=== PATIENT | female | born 1975 | race African-American/Black ===

== ENCOUNTER 2017-01-27 08:31 | Emergency (ER) | payer MEDICAID ==
[~2017-01-27] VITALS: Ht 167.6 cm; Wt 52.0 kg
[~2017-01-27 08:31] MED LIST: ALBU2.5V13 NEB; ALBU6.7H INH; ATEN50TA PO; FERR-63 PO; FOLI-43 PO; HYDR-519 PO; HYDR-523 PO
[2017-01-27] MEDS ORDERED: ACETAMINOPHEN 325MG TABLET PO ONE (09:45)
[2017-01-27 09:48] LABS: HEMATOCRIT. 33.4 % (36.0-48.0); HEMOGLOBIN. 10.7 g/dL (12.0-16.0); MEAN CORPUSCULAR HEMOGLOBIN 20.8 pg (28.0-32.0); MEAN CORPUSCULAR HGB CONC 31.9 g/dL (31.0-37.0); MEAN CORPUSCULAR VOLUME 65.1 fL (81.0-99.0); MEAN PLATELET VOLUME 8.4 fl (7.4-10.4); RED BLOOD CELL COUNT 5.13 mill/uL (4.2-5.4); RED CELL DISTRIBUTION WIDTH 28.7 % (11.6-14.6); WHITE BLOOD COUNT 4.4 x1000/uL (4.5-11.0)
[2017-01-27 09:52] LABS: DIFFERENTIAL COMMENT 1
[2017-01-27 09:59] LABS: ANION GAP 11; CALCIUM 9.3 mg/dL (8.5-10.1); CARBON DIOXIDE 27 mEq/L (21-32); CHLORIDE 108 mEq/L (98-107); INDEX HEMOLYSI 1 (1-3); INDEX ICTERIC 1 (1-4); INDEX LIPEMIC 1 (1-3); UREA NITROGEN BLOOD 6 mg/dL (7-21)
[2017-01-27 10:01] LABS: eGFR > 60 mL/min (>60)
[2017-01-27 10:07] LABS: HCG SCREEN NEGATIVE
[2017-01-27 10:24] LABS: PLATELET ESTIMATE NORMAL
[2017-01-27 10:25] LABS: ANISOCYTOSIS 3+; HYPOCHROMASIA 1+
[2017-01-27 10:26] LABS: TEAR DROP CELLS FEW
[2017-01-27 10:27] LABS: PLATELET 234 x1000/uL (130-400)
[2017-01-27 11:55] VITALS: BP 149/77
== END 2017-01-27 11:56 | disposition home or self-care (01) ==
LOC: ER 08:55
DX: M54.5 Low back pain (principal); G89.29 Other chronic pain; D57.1 Sickle-cell disease without crisis; Z88.0 Allergy status to penicillin; Z88.2 Allergy status to sulfonamides; Z91.041 Radiographic dye allergy status; Z88.8 Allergy status to other drugs, medicaments and biological substances; Z79.899 Other long term (current) drug therapy; J45.909 Unspecified asthma, uncomplicated; E86.0 Dehydration
CPT/HCPCS: 36415; 72070; 80048; 84703; 85025; 99285

== ENCOUNTER 2017-02-20 07:27 | Emergency (ER) | payer MEDICAID ==
[~2017-02-20] VITALS: Ht 167.6 cm; Wt 53.0 kg
[2017-02-20 07:42] VITALS: BP 119/79
[2017-02-20 11:12] LABS: BASOPHILS % 0.5 % (0.0-2.0); EOSINOPHILS % 3.7 % (0.0-5.0); HEMATOCRIT. 34.7 % (36.0-48.0); HEMOGLOBIN. 11.1 g/dL (12.0-16.0); LYMPHOCYTES % 39.6 % (20.0-50.0); MEAN CORPUSCULAR HGB CONC 32.1 g/dL (31.0-37.0); MEAN CORPUSCULAR VOLUME 65.3 fL (81.0-99.0); MONOCYTES % 5.5 % (2.0-8.0); NEUTROPHILS % 50.7 % (40.0-76.0); RED BLOOD CELL COUNT 5.31 mill/uL (4.2-5.4); RED CELL DISTRIBUTION WIDTH 24.3 % (11.6-14.6); WHITE BLOOD COUNT 4.1 x1000/uL (4.5-11.0)
[2017-02-20 11:26] LABS: DIFFERENTIAL COMMENT 1
[2017-02-20 11:49] LABS: PLATELET 241 x1000/uL (130-400)
[2017-02-20 11:51] LABS: MEAN PLATELET VOLUME 8.9 fl (7.4-10.4)
== END 2017-02-20 18:12 | disposition home or self-care (01) ==
LOC: ER 08:25
DX: D17.22 Benign lipomatous neoplasm of skin and subcutaneous tissue of left arm (principal); L03.114 Cellulitis of left upper limb; M54.5 Low back pain; D64.9 Anemia, unspecified; J45.909 Unspecified asthma, uncomplicated; Z88.0 Allergy status to penicillin; Z88.2 Allergy status to sulfonamides; Z91.041 Radiographic dye allergy status; Z79.899 Other long term (current) drug therapy
CPT/HCPCS: 36415; 72100; 73030; 85025; 85044; 99285

== ENCOUNTER 2017-02-21 07:26 | Emergency (ER) | payer MEDICAID ==
[~2017-02-21] VITALS: Ht 167.6 cm; Wt 50.0 kg
[2017-02-21 07:29] VITALS: BP 134/82
== END 2017-02-21 07:57 | disposition home or self-care (01) ==
LOC: ER 07:36
DX: Z76.0 Encounter for issue of repeat prescription (principal); D57.1 Sickle-cell disease without crisis; C90.01 Multiple myeloma in remission; Z88.0 Allergy status to penicillin; Z88.2 Allergy status to sulfonamides; Z88.8 Allergy status to other drugs, medicaments and biological substances; Z91.041 Radiographic dye allergy status
CPT/HCPCS: 99283

== ENCOUNTER 2017-02-28 08:24 | Emergency (ER) | payer MEDICAID ==
[~2017-02-28] VITALS: Ht 167.6 cm; Wt 52.0 kg
[2017-02-28] MEDS ORDERED: IBUPROFEN 600MG TABLET PO ONE (09:15)
[2017-02-28 10:54] VITALS: BP 122/68
== END 2017-02-28 10:56 | disposition home or self-care (01) ==
LOC: ER 09:09
DX: M54.5 Low back pain (principal); Z88.0 Allergy status to penicillin; Z88.2 Allergy status to sulfonamides; Z88.8 Allergy status to other drugs, medicaments and biological substances; Z91.041 Radiographic dye allergy status
CPT/HCPCS: 72080; 81025; 99284; Z7610

== ENCOUNTER 2017-04-13 08:48 | Emergency (ER) | payer MEDICAID ==
[~2017-04-13] VITALS: Ht 167.6 cm; Wt 53.0 kg
[2017-04-13 09:18] VITALS: BP 120/78
== END 2017-04-13 13:08 | disposition left against medical advice (07) ==
LOC: ER 12:34
DX: R52 Pain, unspecified (principal); Z53.21 Procedure and treatment not carried out due to patient leaving prior to being seen by health care provider

== ENCOUNTER 2017-04-19 09:04 | Emergency (ER) | payer MEDICAID ==
[~2017-04-19] VITALS: Ht 170.2 cm; Wt 52.0 kg
[2017-04-19 09:38] VITALS: BP 111/67
[2017-04-19] MEDS ORDERED: METHOCARBAMOL 500MG TABLET PO ONE (10:00)
[2017-04-19] MEDS ORDERED: KETOROLAC 60MG/2ML VIAL IM ONE (10:00)
== END 2017-04-19 10:21 | disposition left against medical advice (07) ==
LOC: ER 09:47
DX: M79.1 Myalgia (principal); J45.909 Unspecified asthma, uncomplicated; C90.01 Multiple myeloma in remission; Z88.0 Allergy status to penicillin; Z88.2 Allergy status to sulfonamides; Z88.8 Allergy status to other drugs, medicaments and biological substances; Z91.041 Radiographic dye allergy status; Z90.710 Acquired absence of both cervix and uterus
CPT/HCPCS: 99281

== ENCOUNTER 2017-06-27 08:04 | Emergency (ER) | payer MEDICAID ==
[~2017-06-27] VITALS: Ht 167.6 cm; Wt 73.0 kg
[2017-06-27] MEDS ORDERED: ONDANSETRON HCL 4MG/2ML VIAL IV STA (10:06)
[2017-06-27] MEDS ORDERED: MORPHINE SULFATE 4 MG/ML CPJ (NOT FOR IM USE) IV STA (10:06)
[2017-06-27 10:37] LABS: GLUCOSE URINE NEGATIVE (NEGATIVE); KETONES URINE NEGATIVE (NEGATIVE); LEUKOCYTE ESTERASE URINE 1+ (NEGATIVE); NITRITE URINE POSITIVE (NEGATIVE); OCCULT BLOOD URINE 2+ (NEGATIVE); PH URINE 5.5 (4.5-8.0); PROTEIN URINE NEGATIVE (NEGATIVE); SPECIFIC GRAVITY URINE 1.014 (1.005-1.030)
[2017-06-27 10:41] LABS: INR 1.1; PROTHROMBIN TIME 11.7 sec (9.4-11.6)
[2017-06-27 10:43] LABS: CLARITY URINE CLOUDY (CLEAR); COLOR URINE YELLOW (YELLOW)
[2017-06-27 10:47] LABS: CARBON DIOXIDE 28 mEq/L (21-32); CHLORIDE 108 mEq/L (98-107)
[2017-06-27 10:48] LABS: HCG SCREEN NEGATIVE
[2017-06-27 10:57] LABS: BASOPHILS % 0.9 % (0.0-2.0); EOSINOPHILS % 6.8 % (0.0-5.0); HEMATOCRIT. 34.7 % (36.0-48.0); HEMOGLOBIN. 11.2 g/dL (12.0-16.0); LYMPHOCYTES % 42.8 % (20.0-50.0); MEAN CORPUSCULAR HEMOGLOBIN 21.5 pg (28.0-32.0); MEAN CORPUSCULAR VOLUME 66.8 fL (81.0-99.0); MEAN PLATELET VOLUME 9.6 fl (7.4-10.4); MONOCYTES % 7.7 % (2.0-8.0); NEUTROPHILS % 41.8 % (40.0-76.0); PLATELET 261 x1000/uL (130-400); RED BLOOD CELL COUNT 5.19 mill/uL (4.2-5.4); RED CELL DISTRIBUTION WIDTH 19.2 % (11.6-14.6)
[2017-06-27 11:31] VITALS: BP 138/64
[2017-06-27 11:54] LABS: PLATELET ESTIMATE NORMAL
== END 2017-06-27 11:58 | disposition home or self-care (01) ==
LOC: ER 08:16
DX: N39.0 Urinary tract infection, site not specified (principal); M89.8X3 Other specified disorders of bone, forearm; C90.00 Multiple myeloma not having achieved remission; R03.0 Elevated blood-pressure reading, without diagnosis of hypertension; J45.909 Unspecified asthma, uncomplicated; Z92.21 Personal history of antineoplastic chemotherapy; Z88.0 Allergy status to penicillin; Z88.2 Allergy status to sulfonamides; Z91.041 Radiographic dye allergy status; Z90.710 Acquired absence of both cervix and uterus
CPT/HCPCS: 36415; 71010; 71100; 73090; 80053; 81001; 84703; 85025; 85610; 99285; Z7610; J2270; J2405

== ENCOUNTER 2017-10-31 07:41 | Emergency (ER) | payer MEDICAID ==
[~2017-10-31] VITALS: Ht 167.6 cm; Wt 53.0 kg
[2017-10-31] MEDS ORDERED: MORPHINE SULFATE 4 MG/ML CPJ (NOT FOR IM USE) IV STA (14:27)
[2017-10-31] MEDS ORDERED: SODIUM CHLORIDE 0.9% 1,000 ML IV ONE (14:27)
[2017-10-31] MEDS ORDERED: ONDANSETRON HCL 4MG/2ML VIAL IV ONE (14:30)
[2017-10-31 14:38] LABS: INR 1.1; PROTHROMBIN TIME 11.4 sec (9.4-11.6)
[2017-10-31 14:42] LABS: EOSINOPHILS % 7.3 % (0.0-5.0); HEMATOCRIT. 34.9 % (36.0-48.0); LYMPHOCYTES % 39.6 % (20.0-50.0); MEAN CORPUSCULAR HEMOGLOBIN 23.1 pg (28.0-32.0); MEAN PLATELET VOLUME 8.9 fl (7.4-10.4); NEUTROPHILS % 45.1 % (40.0-76.0); PLATELET 271 x1000/uL (130-400); RED BLOOD CELL COUNT 5.22 mill/uL (4.2-5.4); RED CELL DISTRIBUTION WIDTH 18.2 % (11.6-14.6)
[2017-10-31 14:59] LABS: PLATELET ESTIMATE NORMAL
[2017-10-31 15:06] LABS: CARBON DIOXIDE 24 mEq/L (21-32); CHLORIDE 109 mEq/L (98-107)
[2017-10-31] MEDS ORDERED: POTASSIUM CHLORIDE 20MEQ TABLET SR PO ONE (16:30)
[2017-10-31 16:58] LABS: CLARITY URINE CLOUDY (CLEAR); COLOR URINE YELLOW (YELLOW); KETONES URINE NEGATIVE (NEGATIVE); LEUKOCYTE ESTERASE URINE 1+ (NEGATIVE); NITRITE URINE POSITIVE (NEGATIVE); OCCULT BLOOD URINE 2+ (NEGATIVE); PROTEIN URINE NEGATIVE (NEGATIVE); SPECIFIC GRAVITY URINE 1.021 (1.005-1.030)
[2017-10-31 17:35] VITALS: BP 127/61
[2017-10-31] MEDS ORDERED: *TOBRAMYCIN PER PHARMACY XX SCH (18:30)
== END 2017-10-31 19:20 | disposition left against medical advice (07) ==
LOC: ER 07:45
DX: N39.0 Urinary tract infection, site not specified (principal); J45.909 Unspecified asthma, uncomplicated; C90.00 Multiple myeloma not having achieved remission; Z88.0 Allergy status to penicillin; Z88.2 Allergy status to sulfonamides; Z88.8 Allergy status to other drugs, medicaments and biological substances; Z79.899 Other long term (current) drug therapy
CPT/HCPCS: 36415; 71045; 80053; 81001; 81025; 85025; 85610; 86850; 86900; 86901; 87077; 87086; 87186; 99285; J2270; J2405; J7030; Z7610

== ENCOUNTER 2018-03-14 07:47 | Emergency (ER) | payer MEDICAID ==
[~2018-03-14] VITALS: Ht 167.6 cm; Wt 52.0 kg
[2018-03-14] MEDS ORDERED: HYDROCODONE/ACETAMINOPHEN 5/325MG TABLET PO ONE (10:15)
[2018-03-14] MEDS ORDERED: MORPHINE SULFATE 4 MG/ML CPJ (NOT FOR IM USE) IV ONE (12:00)
[2018-03-14 13:39] VITALS: BP 119/70
== END 2018-03-14 14:58 | disposition home or self-care (01) ==
LOC: ER 08:55
DX: G89.3 Neoplasm related pain (acute) (chronic) (principal); M54.9 Dorsalgia, unspecified; C90.00 Multiple myeloma not having achieved remission; J45.909 Unspecified asthma, uncomplicated; D57.1 Sickle-cell disease without crisis; Z85.89 Personal history of malignant neoplasm of other organs and systems; Z88.0 Allergy status to penicillin; Z88.2 Allergy status to sulfonamides; Z88.8 Allergy status to other drugs, medicaments and biological substances; Z91.041 Radiographic dye allergy status; Z92.21 Personal history of antineoplastic chemotherapy
CPT/HCPCS: 72070; 72100; 81025; 96374; 99284; J2270

== ENCOUNTER 2018-04-20 07:47 | Emergency (ER) | payer MEDICAID ==
[~2018-04-20] VITALS: Ht 167.6 cm; Wt 52.0 kg
[2018-04-20] MEDS ORDERED: HYDROCODONE/ACETAMINOPHEN 5/325MG TABLET PO STA (08:17)
[2018-04-20 08:34] LABS: BASOPHILS % 1.6 % (0.0-2.0); EOSINOPHILS % 9.7 % (0.0-5.0); HEMATOCRIT. 33.3 % (36.0-48.0); HEMOGLOBIN. 10.8 g/dL (12.0-16.0); LYMPHOCYTES % 35.9 % (20.0-50.0); MEAN CORPUSCULAR HEMOGLOBIN 21.7 pg (28.0-32.0); MEAN CORPUSCULAR VOLUME 66.6 fL (81.0-99.0); MEAN PLATELET VOLUME 8.8 fl (7.4-10.4); MONOCYTES % 11.8 % (2.0-8.0); PLATELET 262 x1000/uL (130-400); RED CELL DISTRIBUTION WIDTH 18.5 % (11.6-14.6)
[2018-04-20 08:40] LABS: INR 1.1; PROTHROMBIN TIME 11.6 sec (9.4-11.6)
[2018-04-20 08:42] LABS: CHLORIDE 111 mEq/L (98-107)
[2018-04-20 08:58] LABS: PLATELET ESTIMATE NORMAL
[2018-04-20 10:44] LABS: CLARITY URINE CLOUDY (CLEAR); COLOR URINE YELLOW (YELLOW); KETONES URINE NEGATIVE (NEGATIVE); LEUKOCYTE ESTERASE URINE 3+ (NEGATIVE); NITRITE URINE POSITIVE (NEGATIVE); OCCULT BLOOD URINE 1+ (NEGATIVE); PH URINE 6.5 (4.5-8.0); PROTEIN URINE NEGATIVE (NEGATIVE); SPECIFIC GRAVITY URINE 1.006 (1.005-1.030)
[2018-04-20 11:03] VITALS: BP 134/80
[2018-04-20] MEDS ORDERED: POTASSIUM CHLORIDE 20MEQ TABLET SR PO ONE (11:15)
[2018-04-20] MEDS ORDERED: LEVOFLOXACIN 500MG TABLET PO ONE (11:15)
== END 2018-04-20 11:46 | disposition home or self-care (01) ==
LOC: ER 08:01
DX: C90.00 Multiple myeloma not having achieved remission (principal); M54.5 Low back pain; R26.2 Difficulty in walking, not elsewhere classified; N39.0 Urinary tract infection, site not specified; E87.6 Hypokalemia; D57.1 Sickle-cell disease without crisis; J45.909 Unspecified asthma, uncomplicated; Z79.899 Other long term (current) drug therapy; Z88.0 Allergy status to penicillin; Z88.8 Allergy status to other drugs, medicaments and biological substances; Z88.2 Allergy status to sulfonamides; Z91.041 Radiographic dye allergy status
CPT/HCPCS: 36415; 72148; 80053; 81003; 81025; 83880; 84484; 85025; 85610; 87077; 87086; 87186; 99285

== ENCOUNTER 2018-10-15 09:24 | Inpatient (IN) | payer MEDICAID ==
[~2018-10-15] VITALS: Ht 167.6 cm; Wt 51.7 kg
[2018-10-15] MEDS ORDERED: ACETAMINOPHEN 325MG TABLET PO STA (10:20)
[2018-10-15 10:51] LABS: CHLORIDE 107 mEq/L (98-107)
[2018-10-15 11:28] LABS: BASOPHILS % 0.6 % (0.0-2.0); EOSINOPHILS % 9.3 % (0.0-5.0); HEMATOCRIT. 40.7 % (36.0-48.0); LYMPHOCYTES % 30.2 % (20.0-50.0); MEAN CORPUSCULAR HEMOGLOBIN 22.2 pg (28.0-32.0); MEAN CORPUSCULAR VOLUME 69.7 fL (81.0-99.0); MEAN PLATELET VOLUME 9.3 fl (7.4-10.4); MONOCYTES % 5.2 % (2.0-8.0); NEUTROPHILS % 54.7 % (40.0-76.0); PLATELET 344 x1000/uL (130-400); RED BLOOD CELL COUNT 5.84 mill/uL (4.2-5.4); RED CELL DISTRIBUTION WIDTH 17.9 % (11.6-14.6)
[2018-10-15] MEDS ORDERED: MORPHINE SULFATE 4 MG/ML CPJ (NOT FOR IM USE) IV ONE (11:45)
[2018-10-15 12:39] LABS: PLATELET ESTIMATE NORMAL
[2018-10-15 16:00] VITALS: BP 124/78
[2018-10-15 16:40] VITALS: BP 124/78
[2018-10-15] MEDS ORDERED: CLONIDINE 0.1MG TABLET PO PRN ×2 (17:00→19:15)
[2018-10-15 17:17] LABS: *AMPHETAMINES SCREEN URINE NEGATIVE (NEGATIVE); *BARBITURATES SCREEN URINE NEGATIVE (NEGATIVE); *BENZODIAZEPINES SCREEN URINE NEGATIVE (NEGATIVE); *COCAINE SCREEN URINE NEGATIVE (NEGATIVE)
[2018-10-15 17:18] LABS: CANNABINOID URINE SCREEN NEGATIVE (NEGATIVE); METHADONE URINE SCREEN NEGATIVE (NEGATIVE); OPIATES URINE SCREEN NEGATIVE (NEGATIVE); PHENCYCLIDINE URINE SCREEN NEGATIVE (NEGATIVE)
[2018-10-15] MEDS: ATENOLOL 25MG TABLET PO SCH (18:22)
[2018-10-15] MEDS ORDERED: IPRATROPIUM/ALBUTEROL 0.5-3(2.5)MG/3ML NEB INH PRN (19:15)
[2018-10-15] MEDS ORDERED: ONDANSETRON HCL 4MG/2ML INJ IV PRN (19:15)
[2018-10-15] MEDS ORDERED: HYDROCODONE/ACETAMINOPHEN 5/325MG TABLET PO PRN (19:15)
[2018-10-15] MEDS ORDERED: GUAIFENESIN 200MG/10ML SUGAR FREE UDC PO PRN (19:15)
[2018-10-15] MEDS ORDERED: ACETAMINOPHEN 325MG TABLET PO PRN (19:15)
[2018-10-15] MEDS ORDERED: MAGNESIUM/ALUMINUM HYDROXIDE/SIMETHICONE 30ML UDC PO PRN (19:15)
[2018-10-15] MEDS ORDERED: DOCUSATE SODIUM 100MG CAPSULE PO PRN (19:15)
[2018-10-15 20:00] VITALS: BP 134/84
[2018-10-16] VITALS: BP 122/78
[2018-10-16 04:00] VITALS: BP 135/88
[2018-10-16 07:20] LABS: CREATINE KINASE MB FRACTION < 1.0 ng/mL (0.5-3.6)
[2018-10-16 07:25] LABS: BASOPHILS % 0.8 % (0.0-2.0); CHLORIDE 108 mEq/L (98-107); EOSINOPHILS % 9.4 % (0.0-5.0); HEMATOCRIT. 36.5 % (36.0-48.0); HEMOGLOBIN. 11.8 g/dL (12.0-16.0); LYMPHOCYTES % 35.9 % (20.0-50.0); MEAN CORPUSCULAR HEMOGLOBIN 22.4 pg (28.0-32.0); MEAN CORPUSCULAR VOLUME 69.3 fL (81.0-99.0); MEAN PLATELET VOLUME 8.7 fl (7.4-10.4); MONOCYTES % 7.3 % (2.0-8.0); NEUTROPHILS % 46.6 % (40.0-76.0); PLATELET 267 x1000/uL (130-400); RED BLOOD CELL COUNT 5.26 mill/uL (4.2-5.4); RED CELL DISTRIBUTION WIDTH 17.5 % (11.6-14.6)
[2018-10-16 07:50] LABS: CREATINE KINASE 92 IU/L (26-192); HDL CHOLESTEROL 50 mg/dL (40-59); LDL CHOLESTEROL 78 mg/dL (5-100)
[2018-10-16] MEDS: ASPIRIN 81MG EC TABLET PO SCH (08:44)
[2018-10-16] MEDS: ATENOLOL 25MG TABLET PO SCH (08:44)
[2018-10-16 12:00] VITALS: BP 115/81
[2018-10-16 16:00] VITALS: BP 122/77
[2018-10-16 20:00] VITALS: BP 125/79
[2018-10-17 00:44] VITALS: BP 121/78
[2018-10-17 04:00] VITALS: BP 136/89
[2018-10-17 05:36] LABS: BASOPHILS % 0.8 % (0.0-2.0); EOSINOPHILS % 8.4 % (0.0-5.0); HEMATOCRIT. 36.8 % (36.0-48.0); HEMOGLOBIN. 12.1 g/dL (12.0-16.0); LYMPHOCYTES % 36.8 % (20.0-50.0); MEAN CORPUSCULAR HEMOGLOBIN 22.7 pg (28.0-32.0); MEAN CORPUSCULAR VOLUME 69.1 fL (81.0-99.0); MONOCYTES % 7.7 % (2.0-8.0); NEUTROPHILS % 46.3 % (40.0-76.0); PLATELET 292 x1000/uL (130-400); RED BLOOD CELL COUNT 5.32 mill/uL (4.2-5.4); RED CELL DISTRIBUTION WIDTH 17.7 % (11.6-14.6)
[2018-10-17 05:42] LABS: CHLORIDE 107 mEq/L (98-107)
[2018-10-17 08:03] VITALS: BP 112/70
[2018-10-17] MEDS: ATENOLOL 25MG TABLET PO SCH (08:22)
[2018-10-17] MEDS: ASPIRIN 81MG EC TABLET PO SCH (08:22)
== END 2018-10-17 08:30 | disposition left against medical advice (07) | DRG 203 ==
LOC: ER 10:15 → 6WST 13:46 → ENRESERV 15:49
PROVIDERS: ADMIT Internal Medicine; ATTEND Internal Medicine
DX: M94.0 Chondrocostal junction syndrome [Tietze] (principal); C90.00 Multiple myeloma not having achieved remission; I11.0 Hypertensive heart disease with heart failure; I50.9 Heart failure, unspecified; D57.1 Sickle-cell disease without crisis; K21.9 Gastro-esophageal reflux disease without esophagitis; Z53.21 Procedure and treatment not carried out due to patient leaving prior to being seen by health care provider; J45.909 Unspecified asthma, uncomplicated; D64.9 Anemia, unspecified; Z68.1 Body mass index [BMI] 19.9 or less, adult; Z79.899 Other long term (current) drug therapy; Z85.820 Personal history of malignant melanoma of skin; Z88.0 Allergy status to penicillin; Z88.2 Allergy status to sulfonamides; Z91.041 Radiographic dye allergy status; Z88.8 Allergy status to other drugs, medicaments and biological substances
CPT/HCPCS: 36415; 71045; 80061; 80305; 82550; 82553; 83735; 83880; 84443; 84484; 85379; 93005; 93970; 94640; J7620

== ENCOUNTER 2019-04-01 09:00 | Emergency (ER) | payer MEDICAID ==
[~2019-04-01] VITALS: Ht 167.6 cm; Wt 52.0 kg
[2019-04-01 09:45] LABS: BASOPHILS % 0.9 % (0.0-2.0); EOSINOPHILS % 11.3 % (0.0-5.0); HEMATOCRIT. 34.6 % (36.0-48.0); HEMOGLOBIN. 11.3 g/dL (12.0-16.0); LYMPHOCYTES % 38.3 % (20.0-50.0); MEAN CORPUSCULAR HEMOGLOBIN 23.2 pg (28.0-32.0); MEAN CORPUSCULAR VOLUME 70.8 fL (81.0-99.0); MEAN PLATELET VOLUME 8.4 fl (7.4-10.4); NEUTROPHILS % 40.5 % (40.0-76.0); PLATELET 214 x1000/uL (130-400); RED BLOOD CELL COUNT 4.89 mill/uL (4.2-5.4); RED CELL DISTRIBUTION WIDTH 16.3 % (11.6-14.6)
[2019-04-01 09:51] LABS: CHLORIDE 110 mEq/L (98-107)
[2019-04-01 10:02] LABS: INR 1.1; PROTHROMBIN TIME 11.3 sec (9.6-11.0)
[2019-04-01] MEDS ORDERED: LORAZEPAM 2MG/ML CPJ IV ONE (10:30)
[2019-04-01 10:36] LABS: CLARITY URINE CLOUDY (CLEAR); COLOR URINE YELLOW (YELLOW); KETONES URINE NEGATIVE (NEGATIVE); LEUKOCYTE ESTERASE URINE TRACE (NEGATIVE); NITRITE URINE POSITIVE (NEGATIVE); OCCULT BLOOD URINE TRACE (NEGATIVE); PH URINE >=9.0 (4.5-8.0); PROTEIN URINE NEGATIVE (NEGATIVE); SPECIFIC GRAVITY URINE 1.016 (1.005-1.030)
[2019-04-01] MEDS ORDERED: LEVOFLOXACIN 750MG PREMIX 150 ML IV ONE (11:30)
[2019-04-01] MEDS ORDERED: ASPIRIN 81MG TABLET PO ONE (11:30)
[2019-04-01 11:38] VITALS: BP 128/69
== END 2019-04-01 11:42 | disposition home or self-care (01) ==
LOC: ER 09:19 → CANBEDREQ 13:39
DX: M62.838 Other muscle spasm (principal); N30.00 Acute cystitis without hematuria; J45.909 Unspecified asthma, uncomplicated; D57.1 Sickle-cell disease without crisis; Z88.0 Allergy status to penicillin; Z88.2 Allergy status to sulfonamides; Z88.8 Allergy status to other drugs, medicaments and biological substances; Z91.041 Radiographic dye allergy status; Z85.79 Personal history of other malignant neoplasms of lymphoid, hematopoietic and related tissues; Z92.21 Personal history of antineoplastic chemotherapy
CPT/HCPCS: 36415; 70450; 71045; 80053; 81003; 81025; 84484; 85025; 85610; 93005; 99284; J2060

== ENCOUNTER 2019-05-13 07:29 | Inpatient (IN) | payer MEDICAID ==
[~2019-05-13] VITALS: Ht 167.6 cm; Wt 50.3 kg
[2019-05-13] MEDS ORDERED: MORPHINE SULFATE 4 MG/ML CPJ (NOT FOR IM USE) IV STA (08:28)
[2019-05-13] MEDS ORDERED: ONDANSETRON HCL 4MG/2ML INJ IV STA (08:28)
[2019-05-13 09:14] LABS: HEMATOCRIT. 36.9 % (36.0-48.0); MEAN CORPUSCULAR HEMOGLOBIN 23.2 pg (28.0-32.0); MEAN CORPUSCULAR VOLUME 71.1 fL (81.0-99.0); MEAN PLATELET VOLUME 8.7 fl (7.4-10.4); PLATELET 225 x1000/uL (130-400); RED BLOOD CELL COUNT 5.18 mill/uL (4.2-5.4); RED CELL DISTRIBUTION WIDTH 17.5 % (11.6-14.6)
[2019-05-13 09:22] LABS: CHLORIDE 109 mEq/L (98-107)
[2019-05-13 09:24] LABS: INR 1.1; PROTHROMBIN TIME 11.4 sec (9.6-11.0)
[2019-05-13] MEDS ORDERED: HYDROCODONE/ACETAMINOPHEN 5/325MG TABLET PO ONE (09:30)
[2019-05-13 09:34] LABS: PLATELET ESTIMATE NORMAL
[2019-05-13 09:41] LABS: CLARITY URINE CLOUDY (CLEAR); COLOR URINE YELLOW (YELLOW); KETONES URINE NEGATIVE (NEGATIVE); LEUKOCYTE ESTERASE URINE TRACE (NEGATIVE); NITRITE URINE POSITIVE (NEGATIVE); OCCULT BLOOD URINE 1+ (NEGATIVE); PROTEIN URINE NEGATIVE (NEGATIVE); SPECIFIC GRAVITY URINE 1.017 (1.005-1.030)
[2019-05-13] MEDS ORDERED: IPRATROPIUM/ALBUTEROL 0.5-3(2.5)MG/3ML NEB HHN ONE (11:00)
[2019-05-13] MEDS ORDERED: LEVOFLOXACIN 750MG PREMIX 150 ML IV ONE (14:30)
[2019-05-13] MEDS ORDERED: MORPHINE SULFATE 2 MG/ML CPJ (NOT FOR IM USE) IV PRN (15:30)
[2019-05-13] MEDS ORDERED: ACETAMINOPHEN 325MG TABLET PO PRN (15:30)
[2019-05-13] MEDS ORDERED: HYDROCODONE/ACETAMINOPHEN 5/325MG TABLET PO PRN (15:30)
[2019-05-13] MEDS ORDERED: LEVOFLOXACIN 500MG PREMIX 100 ML IV SCH ×2 (15:30→23:00)
[2019-05-13] MEDS ORDERED: ONDANSETRON HCL 4MG/2ML INJ IV PRN (15:30)
[2019-05-13 20:30] VITALS: BP 139/85
[2019-05-13] MEDS: METHYLPREDNISOLONE SOD SUCC 40 MG/ML VIAL IV SCH (22:00)
[2019-05-13] MEDS: IPRATROPIUM/ALBUTEROL 0.5-3(2.5)MG/3ML NEB HHN SCH (22:06)
[2019-05-13] MEDS: BUDESONIDE 0.5MG/2ML NEB HHN SCH (22:06)
[2019-05-14] VITALS: BP 112/71
[2019-05-14] MEDS: IPRATROPIUM/ALBUTEROL 0.5-3(2.5)MG/3ML NEB HHN SCH ×4 (00:45→12:12)
[2019-05-14 04:00] VITALS: BP 112/76
[2019-05-14] MEDS: METHYLPREDNISOLONE SOD SUCC 40 MG/ML VIAL IV SCH (05:38)
[2019-05-14 07:46] VITALS: BP 114/57
[2019-05-14] MEDS: BUDESONIDE 0.5MG/2ML NEB HHN SCH (08:03)
[2019-05-14 08:25] LABS: *AMPHETAMINES SCREEN URINE NEGATIVE (NEGATIVE); *BARBITURATES SCREEN URINE NEGATIVE (NEGATIVE); *BENZODIAZEPINES SCREEN URINE NEGATIVE (NEGATIVE); *COCAINE SCREEN URINE NEGATIVE (NEGATIVE)
[2019-05-14 08:26] LABS: CANNABINOID URINE SCREEN NEGATIVE (NEGATIVE); METHADONE URINE SCREEN NEGATIVE (NEGATIVE); OPIATES URINE SCREEN NEGATIVE (NEGATIVE); PHENCYCLIDINE URINE SCREEN NEGATIVE (NEGATIVE)
[2019-05-14 09:44] LABS: HEMATOCRIT. 34.8 % (36.0-48.0); HEMOGLOBIN. 11.6 g/dL (12.0-16.0); MEAN CORPUSCULAR HEMOGLOBIN 23.7 pg (28.0-32.0); MEAN CORPUSCULAR VOLUME 71.4 fL (81.0-99.0); MEAN PLATELET VOLUME 9.5 fl (7.4-10.4); PLATELET 231 x1000/uL (130-400); RED BLOOD CELL COUNT 4.88 mill/uL (4.2-5.4); RED CELL DISTRIBUTION WIDTH 17.4 % (11.6-14.6)
[2019-05-14 09:57] LABS: CHLORIDE 107 mEq/L (98-107)
[2019-05-14 12:00] VITALS: BP 117/80
[2019-05-14 12:38] VITALS: BP 117/80
[2019-05-14 14:00] LABS: PLATELET ESTIMATE NORMAL
== END 2019-05-14 13:15 | disposition home or self-care (01) | DRG 133 ==
LOC: ER 08:40 → 8WST 14:29 → ENRESERV 19:35
PROVIDERS: ADMIT Internal Medicine; ATTEND Internal Medicine
DX: J96.20 Acute and chronic respiratory failure, unspecified whether with hypoxia or hypercapnia (principal); C90.00 Multiple myeloma not having achieved remission; E87.8 Other disorders of electrolyte and fluid balance, not elsewhere classified; J44.1 Chronic obstructive pulmonary disease with (acute) exacerbation; J45.901 Unspecified asthma with (acute) exacerbation; Z99.81 Dependence on supplemental oxygen; N39.0 Urinary tract infection, site not specified; Z88.0 Allergy status to penicillin; Z88.2 Allergy status to sulfonamides; Z88.6 Allergy status to analgesic agent; Z88.8 Allergy status to other drugs, medicaments and biological substances; Z91.041 Radiographic dye allergy status; Z79.899 Other long term (current) drug therapy
CPT/HCPCS: 36415; 71045; 80048; 80305; 87077; 87186; 93970; 94640; 99285; J1956; J2920; J7620; J7626

== ENCOUNTER 2019-12-24 09:24 | Emergency (ER) | payer MEDICAID ==
[~2019-12-24] VITALS: Ht 157.5 cm; Wt 48.0 kg
[~2019-12-24 09:24] MED LIST changes: -ALBU6.7H INH; +ALBU6.7H11 INH; -ATEN50TA PO
[2019-12-24] MEDS ORDERED: SODIUM CHLORIDE 0.9% 1,000 ML IV ONE (10:58)
[2019-12-24 11:21] LABS: CHLORIDE 109 mEq/L (98-107)
[2019-12-24] MEDS: ONDANSETRON HCL 4MG/2ML INJ IV STA ×2 (11:22→11:27)
[2019-12-24 11:45] LABS: BASOPHILS % 1.3 % (0.0-2.0); EOSINOPHILS % 7.1 % (0.0-5.0); HEMATOCRIT. 36.4 % (36.0-48.0); HEMOGLOBIN. 12.2 g/dL (12.0-16.0); MEAN CORPUSCULAR HEMOGLOBIN 23.9 pg (28.0-32.0); MEAN CORPUSCULAR VOLUME 71.5 fL (81.0-99.0); MONOCYTES % 6.4 % (2.0-8.0); NEUTROPHILS % 49.2 % (40.0-76.0); PLATELET 211 x1000/uL (130-400); RED BLOOD CELL COUNT 5.08 mill/uL (4.2-5.4); RED CELL DISTRIBUTION WIDTH 18.4 % (11.6-14.6)
[2019-12-24 13:04] VITALS: BP 146/87
== END 2019-12-24 13:15 | disposition left against medical advice (07) ==
LOC: ER 09:24 → CANBEDREQ 14:47
DX: R62.7 Adult failure to thrive (principal); J45.909 Unspecified asthma, uncomplicated; J44.9 Chronic obstructive pulmonary disease, unspecified; I10 Essential (primary) hypertension; Z85.9 Personal history of malignant neoplasm, unspecified; Z79.899 Other long term (current) drug therapy; Z88.0 Allergy status to penicillin; Z88.2 Allergy status to sulfonamides; Z91.041 Radiographic dye allergy status
CPT/HCPCS: 36415; 80053; 83690; 85025; 99283; J7030; J2405

== ENCOUNTER 2020-09-10 08:59 | Emergency (ER) | payer MEDICAID ==
[~2020-09-10] VITALS: Ht 167.6 cm; Wt 50.0 kg
[2020-09-10] MEDS ORDERED: SODIUM CHLORIDE 0.9% 1,000 ML IV ONE (09:30)
[2020-09-10 10:36] LABS: BASOPHILS % 0.6 % (0.0-2.0); EOSINOPHILS % 4.3 % (0.0-5.0); HEMATOCRIT. 39.5 % (36.0-48.0); HEMOGLOBIN. 12.9 g/dL (12.0-16.0); LYMPHOCYTES % 37.5 % (20.0-50.0); MEAN CORPUSCULAR HEMOGLOBIN 24.3 pg (28.0-32.0); MEAN CORPUSCULAR VOLUME 74.6 fL (81.0-99.0); MONOCYTES % 7.8 % (2.0-8.0); NEUTROPHILS % 49.8 % (40.0-76.0); PLATELET 208 x1000/uL (130-400); RED CELL DISTRIBUTION WIDTH 16.9 % (11.6-14.6)
[2020-09-10 10:37] LABS: CHLORIDE 111 mEq/L (98-107)
[2020-09-10 10:38] LABS: CLARITY URINE CLEAR (CLEAR); COLOR URINE YELLOW (YELLOW); KETONES URINE NEGATIVE (NEGATIVE); LEUKOCYTE ESTERASE URINE NEGATIVE (NEGATIVE); NITRITE URINE POSITIVE (NEGATIVE); OCCULT BLOOD URINE TRACE (NEGATIVE); PROTEIN URINE NEGATIVE (NEGATIVE); SPECIFIC GRAVITY URINE 1.009 (1.005-1.030)
[2020-09-10 10:42] LABS: HCG SCREEN NEGATIVE
[2020-09-10 10:43] LABS: INR 1.1; PARTIAL THROMBOPLASTIN TIME 30.2 sec (23.4-31.0); PROTHROMBIN TIME 11.1 sec (9.6-11.0)
[2020-09-10] MEDS ORDERED: LEVOFLOXACIN 750MG PREMIX 150 ML IV ONE (11:45)
[2020-09-10 16:00] VITALS: BP 138/67
== END 2020-09-10 16:45 | disposition left against medical advice (07) ==
LOC: ER 08:59 → EDBEDREQ 15:15 → EDBEDREQSVC 15:15 → ER 16:45 → CANBEDREQ 19:27
DX: R62.7 Adult failure to thrive (principal); N39.0 Urinary tract infection, site not specified; J44.1 Chronic obstructive pulmonary disease with (acute) exacerbation; J45.909 Unspecified asthma, uncomplicated; I10 Essential (primary) hypertension; Z88.0 Allergy status to penicillin; Z88.2 Allergy status to sulfonamides; Z88.1 Allergy status to other antibiotic agents; Z88.8 Allergy status to other drugs, medicaments and biological substances; Z91.041 Radiographic dye allergy status; Z79.899 Other long term (current) drug therapy
CPT/HCPCS: 36415; 71045; 80053; 81003; 81025; 84703; 85025; 85610; 85730; 86850; 86900; 86901; 87077; 87086; 87186; 93005; 96361; 96365; 99285; J1956; J7030

== ENCOUNTER 2020-12-08 09:40 | Emergency (ER) | payer MEDICAID ==
[~2020-12-08] VITALS: Ht 167.6 cm; Wt 48.0 kg
[2020-12-08] MEDS ORDERED: SODIUM CHLORIDE 0.9% 1,000 ML IV ONE (10:00)
[2020-12-08 12:27] LABS: BASOPHILS % 0.5 % (0.0-2.0); EOSINOPHILS % 3.3 % (0.0-5.0); HEMATOCRIT. 35.1 % (36.0-48.0); HEMOGLOBIN. 11.5 g/dL (12.0-16.0); LYMPHOCYTES % 31.4 % (20.0-50.0); MEAN CORPUSCULAR HEMOGLOBIN 24.6 pg (28.0-32.0); MEAN CORPUSCULAR VOLUME 74.9 fL (81.0-99.0); MEAN PLATELET VOLUME 9.1 fl (7.4-10.4); MONOCYTES % 8.3 % (2.0-8.0); NEUTROPHILS % 56.5 % (40.0-76.0); PLATELET 198 x1000/uL (130-400); RED BLOOD CELL COUNT 4.68 mill/uL (4.2-5.4); RED CELL DISTRIBUTION WIDTH 14.9 % (11.6-14.6)
[2020-12-08 12:35] LABS: CHLORIDE 109 mEq/L (98-107)
[2020-12-08 12:39] LABS: INR 1.1; PROTHROMBIN TIME 11.4 sec (9.6-11.0)
[2020-12-08 16:45] VITALS: BP 133/58
== END 2020-12-08 18:08 | disposition left against medical advice (07) ==
LOC: ER 09:40 → CANBEDREQ 18:40
DX: R53.1 Weakness (principal); Z85.9 Personal history of malignant neoplasm, unspecified; J44.9 Chronic obstructive pulmonary disease, unspecified; I10 Essential (primary) hypertension; Z79.899 Other long term (current) drug therapy; Z88.0 Allergy status to penicillin
CPT/HCPCS: 36415; 80053; 85025; 85610; 93005; 96360; 99284; J7030

== ENCOUNTER 2021-05-30 07:42 | Emergency (ER) | payer MEDICAID ==
[~2021-05-30] VITALS: Ht 167.6 cm; Wt 50.0 kg
[2021-05-30 08:58] LABS: BASOPHILS % 0.7 % (0.0-2.0); EOSINOPHILS % 7.8 % (0.0-5.0); HEMATOCRIT. 37.6 % (36.0-48.0); HEMOGLOBIN. 12.5 g/dL (12.0-16.0); LYMPHOCYTES % 39.8 % (20.0-50.0); MEAN CORPUSCULAR HEMOGLOBIN 24.5 pg (28.0-32.0); MEAN CORPUSCULAR VOLUME 73.8 fL (81.0-99.0); MEAN PLATELET VOLUME 8.2 fl (7.4-10.4); MONOCYTES % 9.2 % (2.0-8.0); NEUTROPHILS % 42.5 % (40.0-76.0); PLATELET 181 x1000/uL (130-400); RED BLOOD CELL COUNT 5.09 mill/uL (4.2-5.4); RED CELL DISTRIBUTION WIDTH 16.8 % (11.6-14.6)
[2021-05-30 09:04] LABS: CHLORIDE 110 mEq/L (98-107)
[2021-05-30 09:10] LABS: INR 1.1; PARTIAL THROMBOPLASTIN TIME 29.1 sec (23.4-31.0); PROTHROMBIN TIME 11.7 sec (9.6-11.0)
[2021-05-30 12:10] VITALS: BP 140/75
== END 2021-05-30 12:32 | disposition left against medical advice (07) ==
LOC: ER 07:42 → CANBEDREQ 12:33
DX: R11.10 Vomiting, unspecified (principal); R64 Cachexia; C90.00 Multiple myeloma not having achieved remission; Z68.1 Body mass index [BMI] 19.9 or less, adult
CPT/HCPCS: 36415; 80048; 85025; 86850; 86900; 99284

== ENCOUNTER 2021-06-14 08:12 | Inpatient (IN) | payer MEDICAID ==
[~2021-06-14] VITALS: Ht 165.1 cm; Wt 55.8 kg
[2021-06-14] MEDS ORDERED: ONDANSETRON HCL 4MG/2ML INJ IV STA (08:34)
[2021-06-14] MEDS ORDERED: SODIUM CHLORIDE 0.9% 1,000 ML IV ONE (08:45)
[2021-06-14 09:14] LABS: BASOPHILS % 0.5 % (0.0-2.0); EOSINOPHILS % 10.3 % (0.0-5.0); HEMATOCRIT. 38.1 % (36.0-48.0); HEMOGLOBIN. 12.4 g/dL (12.0-16.0); LYMPHOCYTES % 35.9 % (20.0-50.0); MEAN CORPUSCULAR HEMOGLOBIN 24.3 pg (28.0-32.0); MEAN CORPUSCULAR VOLUME 74.6 fL (81.0-99.0); MEAN PLATELET VOLUME 8.6 fl (7.4-10.4); MONOCYTES % 8.9 % (2.0-8.0); NEUTROPHILS % 44.4 % (40.0-76.0); PLATELET 171 x1000/uL (130-400); RED BLOOD CELL COUNT 5.11 mill/uL (4.2-5.4); RED CELL DISTRIBUTION WIDTH 16.6 % (11.6-14.6)
[2021-06-14 09:16] LABS: CHLORIDE 111 mEq/L (98-107)
[2021-06-14 09:20] LABS: INR 1.1; PARTIAL THROMBOPLASTIN TIME 27.1 sec (23.4-31.0); PROTHROMBIN TIME 11.5 sec (9.6-11.0)
[2021-06-14 09:22] LABS: HCG SCREEN NEGATIVE
[2021-06-14] MEDS ORDERED: CLONIDINE 0.1MG TABLET PO PRN (10:15)
[2021-06-14] MEDS ORDERED: GUAIFENESIN 200MG/10ML SUGAR FREE UDC PO PRN (10:15)
[2021-06-14] MEDS ORDERED: ONDANSETRON HCL 4MG/2ML INJ IV PRN (10:15)
[2021-06-14] MEDS: SODIUM CHLORIDE 0.45% 1,000 ML IV SCH ×2 (10:15→23:35)
[2021-06-14] MEDS ORDERED: ACETAMINOPHEN 325MG TABLET PO PRN (10:15)
[2021-06-14] MEDS ORDERED: NA PHOS,M-B/NA PHOS,DI-BA ENEMA 118ML PR PRN (10:15)
[2021-06-14] MEDS ORDERED: DOCUSATE SODIUM 100MG CAPSULE PO PRN (10:15)
[2021-06-14] MEDS ORDERED: LORAZEPAM 2MG/ML CPJ IV PRN (10:15)
[2021-06-14] MEDS ORDERED: IPRATROPIUM/ALBUTEROL 0.5-3(2.5)MG/3ML NEB NEB PRN (10:15)
[2021-06-14] MEDS ORDERED: HYDROCODONE/ACETAMINOPHEN 10/325MG TABLET PO PRN (10:15)
[2021-06-14] MEDS ORDERED: HYDROMORPHONE HCL/PF 2MG/ML CPJ IV PRN (10:15)
[2021-06-14] MEDS ORDERED: MAGNESIUM/ALUMINUM HYDROXIDE/SIMETHICONE 30ML UDC PO PRN (10:15)
[2021-06-14] MEDS ORDERED: NALOXONE HCL 0.4MG/ML VIAL IV PRN (10:30)
[2021-06-14 10:57] LABS: CLARITY URINE CLEAR (CLEAR); COLOR URINE YELLOW (YELLOW); KETONES URINE NEGATIVE (NEGATIVE); LEUKOCYTE ESTERASE URINE NEGATIVE (NEGATIVE); NITRITE URINE POSITIVE (NEGATIVE); OCCULT BLOOD URINE 1+ (NEGATIVE); PH URINE 8.5 (4.5-8.0); PROTEIN URINE NEGATIVE (NEGATIVE); SPECIFIC GRAVITY URINE 1.014 (1.005-1.030)
[2021-06-14] MEDS: ENOXAPARIN 40MG/0.4ML SYR SUBCUT SCH (11:27)
[2021-06-14] MEDS ORDERED: POTASSIUM CHLORIDE 20MEQ TABLET SR PO SCH (14:45)
[2021-06-14 17:23] LABS: CHLORIDE 112 mEq/L (98-107)
[2021-06-14 23:30] VITALS: BP 138/87
[2021-06-15] VITALS: BP 138/87
[2021-06-15 04:00] VITALS: BP 135/80
[2021-06-15 08:00] VITALS: BP 140/89
[2021-06-15 08:04] LABS: INR 1.1; PROTHROMBIN TIME 11.5 sec (9.6-11.0)
[2021-06-15 08:26] LABS: CHLORIDE 110 mEq/L (98-107)
[2021-06-15 08:32] LABS: TOTAL IRON BINDING CAPACITY 296 ug/dL (250-450)
[2021-06-15 08:33] LABS: BASOPHILS % 0.6 % (0.0-2.0); EOSINOPHILS % 12.4 % (0.0-5.0); HEMATOCRIT. 38.6 % (36.0-48.0); HEMOGLOBIN. 12.7 g/dL (12.0-16.0); LYMPHOCYTES % 38.1 % (20.0-50.0); MEAN CORPUSCULAR HEMOGLOBIN 24.5 pg (28.0-32.0); MEAN CORPUSCULAR VOLUME 74.5 fL (81.0-99.0); MONOCYTES % 7.9 % (2.0-8.0); PLATELET 175 x1000/uL (130-400); RED BLOOD CELL COUNT 5.18 mill/uL (4.2-5.4); RED CELL DISTRIBUTION WIDTH 16.4 % (11.6-14.6)
[2021-06-15 08:34] LABS: LDL CHOLESTEROL 94 mg/dL (5-100)
[2021-06-15 08:36] LABS: HDL CHOLESTEROL 67 mg/dL (40-59)
[2021-06-15 09:16] LABS: FOLIC ACID (FOLATE) SERUM 10.2 ng/mL (>5.38)
[2021-06-15] MEDS ORDERED: CLINDAMYCIN 900 MG PREMIX 50 ML IV NR (10:00)
[2021-06-15 12:00] VITALS: BP 144/89
[2021-06-15] MEDS: ENOXAPARIN 40MG/0.4ML SYR SUBCUT SCH (12:14)
[2021-06-15] MEDS: SODIUM CHLORIDE 0.45% 1,000 ML IV SCH (15:04)
[2021-06-15 16:00] VITALS: BP 143/94
[2021-06-15 17:29] VITALS: BP 143/94
== END 2021-06-15 17:47 | disposition home or self-care (01) | DRG 421 ==
LOC: ER 08:12 → MICUSO 09:48 → EDBEDREQTM 09:58 → EDBEDREQ 09:58 → 6EST 22:48
PROVIDERS: ADMIT Internal Medicine; ATTEND Internal Medicine
DX: R62.7 Adult failure to thrive (principal); I13.2 Hypertensive heart and chronic kidney disease with heart failure and with stage 5 chronic kidney disease, or end stage renal disease; E46 Unspecified protein-calorie malnutrition; N18.6 End stage renal disease; C90.00 Multiple myeloma not having achieved remission; D57.1 Sickle-cell disease without crisis; E86.0 Dehydration; I25.10 Atherosclerotic heart disease of native coronary artery without angina pectoris; I50.9 Heart failure, unspecified; J45.909 Unspecified asthma, uncomplicated; K59.00 Constipation, unspecified; N28.1 Cyst of kidney, acquired; Z20.822 Contact with and (suspected) exposure to COVID-19; R16.1 Splenomegaly, not elsewhere classified; N81.10 Cystocele, unspecified; Z79.899 Other long term (current) drug therapy; Z88.0 Allergy status to penicillin; Z88.2 Allergy status to sulfonamides; Z91.041 Radiographic dye allergy status; Z88.8 Allergy status to other drugs, medicaments and biological substances; Z68.20 Body mass index [BMI] 20.0-20.9, adult; Z92.21 Personal history of antineoplastic chemotherapy; Z92.3 Personal history of irradiation
CPT/HCPCS: 36415; 71045; 74176; 76700; 80048; 80053; 80061; 81003; 82607; 82728; 82746; 83540; 83550; 84703; 85025; 86850; 86900; 87426; 93005; 99285; J1650; J2405; J3490; J7030

== ENCOUNTER 2022-04-02 09:50 | Emergency (ER) | payer MEDICAID ==
[~2022-04-02] VITALS: Ht 167.6 cm; Wt 53.0 kg
[~2022-04-02 09:50] MED LIST changes: +ALBU4TAB6 PO; -ALBU6.7H11 INH; +ALBU6.7H15 INH; +ATEN50TA PO
[2022-04-02 11:00] LABS: BASOPHILS % 0.4 % (0.0-2.0); EOSINOPHILS % 5.6 % (0.0-5.0); HEMOGLOBIN. 13.1 g/dL (12.0-16.0); LYMPHOCYTES % 42.9 % (20.0-50.0); MEAN CORPUSCULAR HEMOGLOBIN 25.6 pg (28.0-32.0); MEAN CORPUSCULAR VOLUME 76.6 fL (81.0-99.0); MEAN PLATELET VOLUME 8.9 fl (7.4-10.4); MONOCYTES % 6.7 % (2.0-8.0); NEUTROPHILS % 44.4 % (40.0-76.0); PLATELET 193 x1000/uL (130-400); RED BLOOD CELL COUNT 5.09 mill/uL (4.2-5.4); RED CELL DISTRIBUTION WIDTH 13.4 % (11.6-14.6)
[2022-04-02 11:02] LABS: CHLORIDE 109 mEq/L (98-107)
[2022-04-02] MEDS ORDERED: IOHEXOL-300 50 ML BOTTLE IV ONE (15:58)
[2022-04-02 17:09] VITALS: BP 148/78
== END 2022-04-02 17:11 | disposition home or self-care (01) ==
LOC: ER 09:50
DX: K94.23 Gastrostomy malfunction (principal); Z91.041 Radiographic dye allergy status; I10 Essential (primary) hypertension; J45.909 Unspecified asthma, uncomplicated; Z85.89 Personal history of malignant neoplasm of other organs and systems; Z88.3 Allergy status to other anti-infective agents; Z88.0 Allergy status to penicillin; Z88.2 Allergy status to sulfonamides; Z88.8 Allergy status to other drugs, medicaments and biological substances; Y83.3 Surgical operation with formation of external stoma as the cause of abnormal reaction of the patient, or of later complication, without mention of misadventure at the time of the procedure; Y92.018 Other place in single-family (private) house as the place of occurrence of the external cause
CPT/HCPCS: 36415; 74176; 80053; 81025; 85025; 99284; Q9967; Z7610

== ENCOUNTER 2022-07-02 11:51 | Emergency (ER) | payer MEDICAID ==
[~2022-07-02] VITALS: Ht 167.6 cm; Wt 54.0 kg
[2022-07-02 11:57] VITALS: BP 162/86
== END 2022-07-02 13:18 | disposition left against medical advice (07) ==
LOC: ER 11:58
DX: Z53.21 Procedure and treatment not carried out due to patient leaving prior to being seen by health care provider (principal)

== ENCOUNTER 2022-08-08 07:44 | Emergency (ER) | payer MEDICAID ==
[~2022-08-08] VITALS: Ht 167.6 cm; Wt 50.0 kg
[2022-08-08 09:28] VITALS: BP 146/91
[2022-08-08] MEDS ORDERED: SODIUM CHLORIDE 0.9% 1,000 ML IV ONE (10:30)
[2022-08-08 11:14] LABS: BASOPHILS % 0.5 % (0.0-2.0); EOSINOPHILS % 2.1 % (0.0-5.0); HEMATOCRIT. 41.8 % (36.0-48.0); LYMPHOCYTES % 37.1 % (20.0-50.0); MEAN CORPUSCULAR HEMOGLOBIN 25.8 pg (28.0-32.0); MEAN CORPUSCULAR VOLUME 77.1 fL (81.0-99.0); MEAN PLATELET VOLUME 8.4 fl (7.4-10.4); MONOCYTES % 10.2 % (2.0-8.0); NEUTROPHILS % 50.1 % (40.0-76.0); PLATELET 170 x1000/uL (130-400); RED BLOOD CELL COUNT 5.42 mill/uL (4.2-5.4); RED CELL DISTRIBUTION WIDTH 13.6 % (11.6-14.6)
[2022-08-08 11:23] LABS: CHLORIDE 104 mEq/L (98-107)
[2022-08-08 11:51] LABS: HCG SCREEN NEGATIVE
[2022-08-10] MEDS ORDERED: HYDR-4005 PO (15:55)
[2022-08-10] MEDS ORDERED: ONDA4TAB50 MT (15:55)
== END 2022-08-08 12:19 | disposition home or self-care (01) ==
LOC: ER 07:44 → EDBEDREQ 11:03 → ER 12:19 → CANBEDREQ 12:51
DX: K94.29 Other complications of gastrostomy (principal); E86.0 Dehydration; I10 Essential (primary) hypertension; J45.909 Unspecified asthma, uncomplicated; Z85.9 Personal history of malignant neoplasm, unspecified; Z91.041 Radiographic dye allergy status; Z88.2 Allergy status to sulfonamides; Z88.0 Allergy status to penicillin; Y83.3 Surgical operation with formation of external stoma as the cause of abnormal reaction of the patient, or of later complication, without mention of misadventure at the time of the procedure; Y92.018 Other place in single-family (private) house as the place of occurrence of the external cause
CPT/HCPCS: 36415; 74018; 74176; 80053; 84703; 85025; 99285; J7030

== ENCOUNTER 2022-10-04 07:45 | Emergency (ER) | payer MEDICAID ==
[~2022-10-04] VITALS: Ht 167.6 cm; Wt 52.5 kg
[~2022-10-04 07:45] MED LIST changes: +HYDR-4005 PO; +ONDA4TAB50 MT
[2022-10-04 07:47] VITALS: BP 144/81
[2022-10-04] MEDS ORDERED: DIATR MEGLU/DIATRIZOATE SOLN 30ML PO ONE (11:00)
[2022-10-04] MEDS ORDERED: ONDANSETRON HCL 4MG/2ML INJ IV ONE (11:00)
[2022-10-04 11:24] LABS: EOSINOPHILS % 13.4 % (0.0-5.0); HEMATOCRIT. 43.3 % (36.0-48.0); HEMOGLOBIN. 14.4 g/dL (12.0-16.0); LYMPHOCYTES % 37.7 % (20.0-50.0); MEAN CORPUSCULAR HEMOGLOBIN 25.7 pg (28.0-32.0); MEAN CORPUSCULAR VOLUME 77.4 fL (81.0-99.0); MEAN PLATELET VOLUME 8.4 fl (7.4-10.4); MONOCYTES % 5.4 % (2.0-8.0); NEUTROPHILS % 42.5 % (40.0-76.0); PLATELET 216 x1000/uL (130-400); RED BLOOD CELL COUNT 5.59 mill/uL (4.2-5.4); RED CELL DISTRIBUTION WIDTH 14.9 % (11.6-14.6)
[2022-10-04 11:28] LABS: CLARITY URINE CLOUDY (CLEAR); COLOR URINE YELLOW (YELLOW); KETONES URINE NEGATIVE (NEGATIVE); LEUKOCYTE ESTERASE URINE TRACE (NEGATIVE); NITRITE URINE POSITIVE (NEGATIVE); OCCULT BLOOD URINE 1+ (NEGATIVE); PROTEIN URINE NEGATIVE (NEGATIVE); SPECIFIC GRAVITY URINE 1.015 (1.005-1.030)
[2022-10-04 11:32] LABS: CHLORIDE 107 mEq/L (98-107)
[2022-10-04] MEDS ORDERED: NA PHOS,M-B/NA PHOS,DI-BA ENEMA 118ML PR NR (12:00)
[2022-10-04] MEDS ORDERED: CEPHALEXIN 250MG CAPSULE PO ONE (12:30)
[2022-10-04] MEDS ORDERED: CEPH500C2 MT (12:58)
[2022-10-04] MEDS ORDERED: ONDA4TAB50 MT ×2 (12:58)
[2022-10-04] MEDS ORDERED: ONDA4TAB11 PO (13:01)
== END 2022-10-04 15:27 | disposition home or self-care (01) ==
LOC: ER 07:45
DX: N39.0 Urinary tract infection, site not specified (principal); N12 Tubulo-interstitial nephritis, not specified as acute or chronic; J45.909 Unspecified asthma, uncomplicated; Z85.9 Personal history of malignant neoplasm, unspecified; I10 Essential (primary) hypertension; Z79.899 Other long term (current) drug therapy; Z88.0 Allergy status to penicillin; Z88.2 Allergy status to sulfonamides; Z88.5 Allergy status to narcotic agent
CPT/HCPCS: 36415; 74176; 80053; 81003; 81025; 85025; 96374; 99284; J2405

== ENCOUNTER 2022-11-01 08:32 | Emergency (ER) | payer MEDICAID ==
[~2022-11-01] VITALS: Ht 167.6 cm; Wt 52.0 kg
[~2022-11-01 08:32] MED LIST changes: +CEPH500C2 MT; +ONDA4TAB11 PO
[2022-11-01 08:37] VITALS: BP 152/86
[2022-11-02] MEDS ORDERED: CIPR-263 MT (14:14)
== END 2022-11-01 15:15 | disposition left against medical advice (07) ==
LOC: ER 08:32
DX: Z53.21 Procedure and treatment not carried out due to patient leaving prior to being seen by health care provider (principal)
CPT/HCPCS: 99281

== ENCOUNTER 2022-11-02 07:26 | Emergency (ER) | payer MEDICAID ==
[~2022-11-02] VITALS: Ht 162.6 cm; Wt 50.0 kg
[2022-11-02] MEDS ORDERED: MORPHINE SULFATE 4 MG/ML CPJ (NOT FOR IM USE) IV ONE (09:00)
[2022-11-02 09:20] LABS: CLARITY URINE CLEAR (CLEAR); COLOR URINE YELLOW (YELLOW); KETONES URINE NEGATIVE (NEGATIVE); LEUKOCYTE ESTERASE URINE NEGATIVE (NEGATIVE); NITRITE URINE POSITIVE (NEGATIVE); OCCULT BLOOD URINE TRACE (NEGATIVE); PH URINE 8.5 (4.5-8.0); PROTEIN URINE NEGATIVE (NEGATIVE); SPECIFIC GRAVITY URINE 1.016 (1.005-1.030)
[2022-11-02 09:59] VITALS: BP 145/72
[2022-11-02] MEDS ORDERED: KETOROLAC 60MG/2ML VIAL IM ONE (10:00)
[2022-11-02 10:46] LABS: BASOPHILS % 0.4 % (0.0-2.0); EOSINOPHILS % 8.6 % (0.0-5.0); HEMATOCRIT. 38.5 % (36.0-48.0); HEMOGLOBIN. 12.9 g/dL (12.0-16.0); LYMPHOCYTES % 32.8 % (20.0-50.0); MEAN CORPUSCULAR HEMOGLOBIN 25.8 pg (28.0-32.0); MEAN CORPUSCULAR VOLUME 77.3 fL (81.0-99.0); MEAN PLATELET VOLUME 8.1 fl (7.4-10.4); MONOCYTES % 6.7 % (2.0-8.0); NEUTROPHILS % 51.5 % (40.0-76.0); PLATELET 185 x1000/uL (130-400); RED BLOOD CELL COUNT 4.98 mill/uL (4.2-5.4); RED CELL DISTRIBUTION WIDTH 14.5 % (11.6-14.6)
[2022-11-02 10:50] LABS: CHLORIDE 110 mEq/L (98-107)
[2022-11-02 11:29] LABS: HCG SCREEN NEGATIVE
[2022-11-02] MEDS ORDERED: CIPR-263 MT (14:14)
== END 2022-11-02 16:35 | disposition home or self-care (01) ==
LOC: ER 07:26
DX: N10 Acute pyelonephritis (principal); I10 Essential (primary) hypertension; J45.909 Unspecified asthma, uncomplicated; C90.01 Multiple myeloma in remission; Z93.1 Gastrostomy status; Z88.2 Allergy status to sulfonamides; Z88.1 Allergy status to other antibiotic agents; Z88.3 Allergy status to other anti-infective agents; Z91.041 Radiographic dye allergy status; Z88.0 Allergy status to penicillin
CPT/HCPCS: 36415; 74176; 80053; 81003; 81025; 83690; 84703; 85025; 96372; 99285; J1885

== ENCOUNTER 2023-04-03 07:46 | Emergency (ER) | payer MEDICAID ==
[~2023-04-03] VITALS: Ht 167.6 cm; Wt 49.9 kg
[~2023-04-03 07:46] MED LIST changes: +CIPR-263 MT
[2023-04-03 08:01] VITALS: O2SAT 99
[2023-04-03 10:57] LABS: BASOPHILS % 0.3 % (0.0-2.0); EOSINOPHILS % 7.2 % (0.0-5.0); HEMATOCRIT. 39.5 % (36.0-48.0); HEMOGLOBIN. 13.2 g/dL (12.0-16.0); LYMPHOCYTES % 37.4 % (20.0-50.0); MEAN CORPUSCULAR HEMOGLOBIN 25.3 pg (28.0-32.0); MEAN CORPUSCULAR VOLUME 75.7 fL (81.0-99.0); MEAN PLATELET VOLUME 8.4 fl (7.4-10.4); MONOCYTES % 5.1 % (2.0-8.0); PLATELET 183 x1000/uL (130-400); RED BLOOD CELL COUNT 5.22 mill/uL (4.2-5.4)
[2023-04-03 11:04] LABS: CHLORIDE 110 mEq/L (98-107)
[2023-04-03 11:10] LABS: PROTHROMBIN TIME 10.8 sec (9.6-11.0)
[2023-04-03 13:15] VITALS: BP 121/89; PULSE 65; RESP 16; TEMP 98.5
[2023-04-18] MEDS ORDERED: CIPR500T5 MT (13:02)
== END 2023-04-03 14:14 | disposition left against medical advice (07) ==
LOC: ER 07:56 → CANBEDREQ 16:49
DX: K94.23 Gastrostomy malfunction (principal); I10 Essential (primary) hypertension; J45.909 Unspecified asthma, uncomplicated; Z88.0 Allergy status to penicillin; Z88.2 Allergy status to sulfonamides; Z88.8 Allergy status to other drugs, medicaments and biological substances
CPT/HCPCS: 80053; 85025; 85610; 86850; 86900; 86901; 36415; 74176; 43762; 99284; Z7610 ×2

== ENCOUNTER 2023-04-05 08:02 | Emergency (ER) | payer MEDICAID ==
[~2023-04-05] VITALS: Ht 167.6 cm; Wt 51.7 kg
[2023-04-05 08:10] VITALS: BP 152/77; PULSE 66; RESP 16; TEMP 98.5; O2SAT 100
== END 2023-04-05 09:07 | disposition left against medical advice (07) ==
LOC: ER 08:02
DX: Z53.21 Procedure and treatment not carried out due to patient leaving prior to being seen by health care provider (principal)
CPT/HCPCS: 99281

== ENCOUNTER 2023-04-22 07:04 | Emergency (ER) | payer MEDICAID ==
[~2023-04-22] VITALS: Ht 167.6 cm; Wt 50.0 kg
[2023-04-22 07:28] VITALS: O2SAT 100
[2023-04-22 07:34] VITALS: BP 152/94; PULSE 72; RESP 18; TEMP 98.3
== END 2023-04-22 10:35 | disposition left against medical advice (07) ==
LOC: ER 07:04
DX: Z53.21 Procedure and treatment not carried out due to patient leaving prior to being seen by health care provider (principal)
CPT/HCPCS: 99281

== ENCOUNTER 2024-08-11 06:53 | Emergency (ER) | payer MEDICAID ==
[~2024-08-11] VITALS: Ht 167.6 cm; Wt 50.0 kg
[~2024-08-11 06:53] MED LIST changes: +ONDA-239 PO; -ONDA4TAB11 PO
[2024-08-11 07:01] VITALS: O2SAT 99
[2024-08-11 10:51] VITALS: BP 138/90; PULSE 82; RESP 18; TEMP 37.00296; O2SAT 99
[2024-09-23] MEDS ORDERED: AMLO5TAB88 PO (12:50)
[2024-09-23] MEDS ORDERED: MONT-39 PO (12:50)
== END 2024-08-11 10:52 | disposition left against medical advice (07) ==
LOC: ER 06:53
DX: K94.23 Gastrostomy malfunction (principal); I10 Essential (primary) hypertension; J45.909 Unspecified asthma, uncomplicated; Z88.1 Allergy status to other antibiotic agents; Z88.2 Allergy status to sulfonamides; Z88.0 Allergy status to penicillin; Z88.8 Allergy status to other drugs, medicaments and biological substances; Z79.899 Other long term (current) drug therapy; Z98.890 Other specified postprocedural states
CPT/HCPCS: 43762; 99285

== ENCOUNTER 2024-08-12 06:49 | Emergency (ER) | payer MEDICAID ==
[~2024-08-12] VITALS: Ht 167.6 cm; Wt 56.4 kg
[2024-08-12 06:58] VITALS: O2SAT 96
[2024-08-12 07:07] VITALS: BP 144/96; PULSE 98; RESP 16; TEMP 98.2; O2SAT 98
== END 2024-08-12 09:50 | disposition left against medical advice (07) ==
LOC: ER 06:49
DX: R10.0 Acute abdomen (principal); Z53.21 Procedure and treatment not carried out due to patient leaving prior to being seen by health care provider

== ENCOUNTER 2024-08-15 05:34 | Inpatient (IN) | payer MEDICAID ==
[~2024-08-15] VITALS: Ht 167.6 cm; Wt 54.4 kg
[2024-08-15] MEDS ORDERED: IPRATROPIUM/ALBUTEROL 0.5-3(2.5)MG/3ML NEB HHN PRN (07:45)
[2024-08-15] MEDS ORDERED: ACETAMINOPHEN 325MG TABLET PO PRN ×2 (07:45)
[2024-08-15] MEDS ORDERED: GUAIFENESIN 200MG/10ML SUGAR FREE UDC PO PRN (07:45)
[2024-08-15] MEDS ORDERED: LORAZEPAM 0.5MG TABLET PO PRN (07:45)
[2024-08-15] MEDS ORDERED: DOCUSATE SODIUM 100MG CAPSULE PO PRN (07:45)
[2024-08-15 08:13] LABS: BASOPHILS % 0.4 % (0.0-2.0); DIFFERENTIAL COMMENT 0; HEMATOCRIT. 45.6 % (36.0-48.0); HEMOGLOBIN. 14.2 g/dL (12.0-16.0); LYMPHOCYTES % 35.7 % (20.0-50.0); MEAN CORPUSCULAR HEMOGLOBIN 24.1 pg (28.0-32.0); MEAN CORPUSCULAR HGB CONC 31.2 g/dL (31.0-37.0); MEAN CORPUSCULAR VOLUME 77.5 fL (81.0-99.0); MEAN PLATELET VOLUME 8.2 fl (7.4-10.4); MONOCYTES % 6.4 % (2.0-8.0); NEUTROPHILS % 44.5 % (40.0-76.0); PLATELET 211 x1000/uL (130-400); RED BLOOD CELL COUNT 5.89 mill/uL (4.2-5.4); RED CELL DISTRIBUTION WIDTH 16.1 % (11.6-14.6)
[2024-08-15 08:17] LABS: CLARITY URINE CLEAR (CLEAR); COLOR URINE YELLOW (YELLOW); GLUCOSE URINE NEGATIVE (NEGATIVE); KETONES URINE NEGATIVE (NEGATIVE); LEUKOCYTE ESTERASE URINE NEGATIVE (NEGATIVE); NITRITE URINE NEGATIVE (NEGATIVE); OCCULT BLOOD URINE NEGATIVE (NEGATIVE); PH URINE 7.5 (4.5-8.0); PROTEIN URINE NEGATIVE (NEGATIVE); SPECIFIC GRAVITY URINE 1.018 (1.005-1.030)
[2024-08-15 08:19] LABS: CHLORIDE 110 mEq/L (98-107); POTASSIUM 4.1 mEq/L (3.5-5.1); SODIUM 140 mEq/L (136-145)
[2024-08-15 08:20] LABS: CALCIUM 9.9 mg/dL (8.7-10.4); CARBON DIOXIDE 24 mEq/L (21-32)
[2024-08-15 08:25] LABS: CREATININE 0.6 mg/dL (0.6-1.0); GLUCOSE 99 mg/dL (70-105); TRIGLYCERIDE 93 mg/dL (0-150); UREA NITROGEN BLOOD 8 mg/dL (9-23)
[2024-08-15 08:26] LABS: LDL CHOLESTEROL 104 mg/dL (5-100)
[2024-08-15 08:27] LABS: ALANINE AMINOTRANSFERASE < 7 IU/L (10-49); ALBUMIN 4.4 g/dL (3.2-4.8); ASPARTATE AMINOTRANSFERASE 28 IU/L (<34); BILIRUBIN DIRECT 0.1 mg/dL (<=3.0); BILIRUBIN TOTAL 0.4 mg/dL (0.1-1.0); CHOLESTEROL 191 mg/dL (<200); HDL CHOLESTEROL 76 mg/dL (>65); PROTEIN TOTAL 7.8 g/dL (6.0-8.3)
[2024-08-15 08:29] LABS: THYROID STIMULATING HORMONE 0.67 uIU/mL (0.55-4.78)
[2024-08-15] MEDS ORDERED: CLONIDINE 0.1MG TABLET PO PRN (08:45)
[2024-08-15 08:48] LABS: *AMPHETAMINES SCREEN URINE NEGATIVE (NEGATIVE); *BARBITURATES SCREEN URINE NEGATIVE (NEGATIVE); *BENZODIAZEPINES SCREEN URINE NEGATIVE (NEGATIVE); *COCAINE SCREEN URINE NEGATIVE (NEGATIVE); CANNABINOID URINE SCREEN NEGATIVE (NEGATIVE); ECSTASY MDMA SCREEN URINE NEGATIVE (NEGATIVE); METHADONE URINE SCREEN NEGATIVE (NEGATIVE); OPIATES URINE SCREEN NEGATIVE (NEGATIVE); PHENCYCLIDINE URINE SCREEN NEGATIVE (NEGATIVE)
[2024-08-15] MEDS ORDERED: DEXTROSE 50% WATER 50ML SYRINGE IV PRN (09:00)
[2024-08-15 09:25] LABS: CHLORIDE 111 mEq/L (98-107); POTASSIUM 3.9 mEq/L (3.5-5.1); SODIUM 142 mEq/L (136-145)
[2024-08-15 09:26] LABS: CALCIUM 9.7 mg/dL (8.7-10.4); CARBON DIOXIDE 26 mEq/L (21-32)
[2024-08-15 09:31] LABS: CREATININE 0.6 mg/dL (0.6-1.0); GLUCOSE 91 mg/dL (70-105); UREA NITROGEN BLOOD 11 mg/dL (9-23)
[2024-08-15 09:32] LABS: PHOSPHORUS 3.8 mg/dL (2.5-4.9)
[2024-08-15 09:33] LABS: ALANINE AMINOTRANSFERASE < 7 IU/L (10-49); ALBUMIN 4.3 g/dL (3.2-4.8); ASPARTATE AMINOTRANSFERASE 26 IU/L (<34); BILIRUBIN TOTAL 0.4 mg/dL (0.1-1.0); PROTEIN TOTAL 7.5 g/dL (6.0-8.3)
[2024-08-15 09:41] LABS: HCG SCREEN NEGATIVE; PARTIAL THROMBOPLASTIN TIME 28.9 sec (23.4-31.0); PROTHROMBIN TIME 10.9 sec (9.6-11.0)
[2024-08-15] MEDS: ATENOLOL 50 MG TABLET PO SCH (10:00)
[2024-08-15] MEDS: FAMOTIDINE 20MG TABLET PO SCH (10:00)
[2024-08-15] MEDS: FOLIC ACID 1MG TABLET PO SCH (10:09)
[2024-08-15 13:44] VITALS: BP_DIAS 92; TEMP 37.05852; O2SAT 100
[2024-08-15] MEDS: DEXT 5%/0.9% NACL 1,000 ML IV ONE (13:45)
[2024-08-15 14:47] VITALS: PULSE 80; RESP 16; O2SAT 97
[2024-08-15] MEDS: IPRATROPIUM/ALBUTEROL 0.5-3(2.5)MG/3ML NEB HHN SCH (14:47)
[2024-08-15 15:07] VITALS: BP_SYST 136
[2024-08-15] MEDS ORDERED: METOCLOPRAMIDE HCL 10MG/2ML VIAL IV PRN (15:30)
[2024-08-15] MEDS ORDERED: MONTELUKAST SODIUM 10MG TABLET PO SCH (17:00)
[2024-08-15 17:11] LABS: CREATINE KINASE 155 IU/L (34-145)
[2024-08-15] MEDS ORDERED: FAMOTIDINE 20MG TABLET PO SCH (21:00)
[2024-08-17 10:06] LABS: ALBUMIN 3.7 g/dL (2.9-4.4); ALPHA-1-GLOBULIN 0.2 g/dL (0.0-0.4); ALPHA-2-GLOBULIN 0.6 g/dL (0.4-1.0); BETA GLOBULIN 1.1 g/dL (0.7-1.3); GAMMA GLOBULINS 1.6 g/dL (0.4-1.8); GLOBULIN TOTAL 3.6 g/dL (2.2-3.9); M-SPIKE Not Observed g/dL (Not Observed); TOTAL PROTEIN SERUM 7.3 g/dL (6.0-8.5)
== END 2024-08-15 15:38 | disposition left against medical advice (07) | DRG 252 ==
LOC: ER 05:42 → 5WST 06:54
PROVIDERS: ADMIT Internal Medicine; ATTEND Internal Medicine
DX: K94.23 Gastrostomy malfunction (principal); E43 Unspecified severe protein-calorie malnutrition; D72.10 Eosinophilia, unspecified; D57.1 Sickle-cell disease without crisis; C90.00 Multiple myeloma not having achieved remission; I48.91 Unspecified atrial fibrillation; Z68.1 Body mass index [BMI] 19.9 or less, adult; I10 Essential (primary) hypertension; E78.5 Hyperlipidemia, unspecified; J45.909 Unspecified asthma, uncomplicated; Z53.29 Procedure and treatment not carried out because of patient's decision for other reasons; Z88.2 Allergy status to sulfonamides; Z88.1 Allergy status to other antibiotic agents; Z88.0 Allergy status to penicillin; Z80.7 Family history of other malignant neoplasms of lymphoid, hematopoietic and related tissues; Z79.899 Other long term (current) drug therapy
CPT/HCPCS: 36415; 71045; 74018; 80048; 80053; 80061; 80076; 80305; 81003; 82550; 83735; 84100; 84155; 84165; 84439; 84443; 84703; 85025; 93005; 94640; 99285

== ENCOUNTER 2024-09-17 07:12 | Emergency (ER) | payer MEDICAID, OTHER ==
[~2024-09-17] VITALS: Ht 167.6 cm; Wt 52.1 kg
[2024-09-17 07:24] VITALS: BP 150/127; PULSE 81; RESP 20; TEMP 98.1; O2SAT 97
[2024-09-17] MEDS ORDERED: MAGNESIUM/ALUMINUM HYDROXIDE/SIMETHICONE 30ML UDC GT ONE (08:00)
[2024-09-17] MEDS: PANTOPRAZOLE 40MG DR TABLET PO ONE (08:34)
[2024-09-17] MEDS: SUCRALFATE 1G TABLET GT SCH (08:34)
[2024-09-17] MEDS: HYDROCODONE/ACETAMINOPHEN 5/325MG TABLET GT ONE (08:35)
[2024-09-17] MEDS: METOCLOPRAMIDE HCL 10MG TABLET GT ONE (08:35)
[2024-09-17 08:49] LABS: BASOPHILS % 0.6 % (0.0-2.0); DIFFERENTIAL COMMENT 0; EOSINOPHILS % 14.3 % (0.0-5.0); HEMATOCRIT. 42.9 % (36.0-48.0); HEMOGLOBIN. 14.1 g/dL (12.0-16.0); LYMPHOCYTES % 35.1 % (20.0-50.0); MEAN CORPUSCULAR HEMOGLOBIN 24.9 pg (28.0-32.0); MEAN CORPUSCULAR HGB CONC 32.8 g/dL (31.0-37.0); MEAN CORPUSCULAR VOLUME 76.1 fL (81.0-99.0); MEAN PLATELET VOLUME 8.3 fl (7.4-10.4); MONOCYTES % 6.3 % (2.0-8.0); NEUTROPHILS % 43.7 % (40.0-76.0); PLATELET 214 x1000/uL (130-400); RED BLOOD CELL COUNT 5.64 mill/uL (4.2-5.4); RED CELL DISTRIBUTION WIDTH 14.8 % (11.6-14.6); WHITE BLOOD COUNT 3.9 x1000/uL (4.5-11.0)
[2024-09-17 08:56] LABS: CHLORIDE 108 mEq/L (98-107); POTASSIUM 3.6 mEq/L (3.5-5.1); SODIUM 140 mEq/L (136-145)
[2024-09-17 08:57] LABS: CARBON DIOXIDE 26 mEq/L (21-32)
[2024-09-17 08:58] LABS: CALCIUM 9.7 mg/dL (8.7-10.4)
[2024-09-17 09:02] LABS: CREATININE 0.6 mg/dL (0.6-1.0)
[2024-09-17 09:03] LABS: GLUCOSE 89 mg/dL (70-105); UREA NITROGEN BLOOD 10 mg/dL (9-23)
[2024-09-17 09:04] LABS: ALANINE AMINOTRANSFERASE 9 IU/L (10-49)
[2024-09-17 09:05] LABS: ALBUMIN 4.3 g/dL (3.2-4.8); ASPARTATE AMINOTRANSFERASE 25 IU/L (<34); BILIRUBIN DIRECT 0.2 mg/dL (<=3.0); BILIRUBIN TOTAL 0.6 mg/dL (0.1-1.0); PROTEIN TOTAL 7.7 g/dL (6.0-8.3)
[2024-09-17] MEDS ORDERED: OMEP40CA20 PEG (09:17)
[2024-09-17] MEDS ORDERED: SUCR1TAB30 PEG (09:18)
== END 2024-09-17 09:45 | disposition home or self-care (01) ==
LOC: ER 07:12
DX: K21.9 Gastro-esophageal reflux disease without esophagitis (principal); J45.909 Unspecified asthma, uncomplicated; I10 Essential (primary) hypertension; Z88.8 Allergy status to other drugs, medicaments and biological substances; Z88.2 Allergy status to sulfonamides; Z88.1 Allergy status to other antibiotic agents; Z88.0 Allergy status to penicillin; Z79.899 Other long term (current) drug therapy; Z91.041 Radiographic dye allergy status; Z93.1 Gastrostomy status; Z98.890 Other specified postprocedural states
CPT/HCPCS: 99284; 74176; 80076; 80048; 83690; 85025; 36415; J8597

== ENCOUNTER 2025-08-26 06:56 | Emergency (ER) | payer MEDICAID, OTHER ==
[~2025-08-26] VITALS: Ht 167.6 cm; Wt 52.0 kg
[~2025-08-26 06:56] MED LIST changes: +AMLO5TAB88 PO; -CEPH500C2 MT; -CIPR-263 MT; -HYDR-4005 PO; -HYDR-519 PO; -HYDR-523 PO; +IPRA3AMP31 NEB; +MONT-39 PO; +OMEP40CA20 PEG; +SUCR1TAB30 PEG
[2025-08-26 07:02] VITALS: O2SAT 98
[2025-08-26 07:12] VITALS: BP 127/83; PULSE 106; RESP 18; TEMP 37; O2SAT 96
[2025-08-26 08:24] LABS: INR 1.0
[2025-08-26 08:46] LABS: HCG SCREEN NEGATIVE
[2025-08-26 08:48] LABS: ASPARTATE AMINOTRANSFERASE 17 IU/L (<34); BILIRUBIN DIRECT 0.2 mg/dL (<=3.0)
[2025-08-26 08:49] LABS: BILIRUBIN TOTAL 0.5 mg/dL (0.1-1.0); PROTEIN TOTAL 7.0 g/dL (6.0-8.3)
[2025-08-26 09:21] LABS: BASOPHILS % 0.8 % (0.0-2.0); EOSINOPHILS % 11.1 % (0.0-5.0); HEMATOCRIT. 33.0 % (36.0-48.0); HEMOGLOBIN. 10.7 g/dL (12.0-16.0); LYMPHOCYTES % 25.3 % (20.0-50.0); MEAN PLATELET VOLUME 8.4 fl (7.4-10.4); MONOCYTES % 9.4 % (2.0-8.0); NEUTROPHILS % 53.4 % (40.0-76.0); PLATELET 270 x1000/uL (130-400); RED BLOOD CELL COUNT 4.39 mill/uL (4.2-5.4); RED CELL DISTRIBUTION WIDTH 17.2 % (11.6-14.6)
[2025-08-26 09:37] LABS: CREATININE 0.5 mg/dL (0.6-1.0); UREA NITROGEN BLOOD 7 mg/dL (9-23)
[2025-08-26 09:55] LABS: CLARITY URINE CLEAR (CLEAR); COLOR URINE YELLOW (YELLOW); GLUCOSE URINE NEGATIVE (NEGATIVE); KETONES URINE NEGATIVE (NEGATIVE); OCCULT BLOOD URINE TRACE (NEGATIVE); PH URINE 7.5 (4.5-8.0); PROTEIN URINE NEGATIVE (NEGATIVE); SPECIFIC GRAVITY URINE 1.018 (1.005-1.030)
[2025-08-26 09:56] LABS: LEUKOCYTE ESTERASE URINE NEGATIVE (NEGATIVE); NITRITE URINE NEGATIVE (NEGATIVE); UROBILINOGEN URINE 1.0 E.U./dL (0.2-1.0)
[2025-08-26 10:07] LABS: SQUAMOUS EPITHELIAL CELL URINE 2+ /lpf (RARE/1+)
[2025-08-26 10:08] LABS: BACTERIA URINE TRACE; MUCUS URINE 1+ /lpf (< = 2+); WBC URINE 0-2 /hpf (0-2)
[2025-08-26 10:09] LABS: RBC URINE 0-2 /hpf (0-2)
== END 2025-08-26 09:22 | disposition left against medical advice (07) ==
LOC: ER 06:56
DX: D57.1 Sickle-cell disease without crisis (principal); D72.819 Decreased white blood cell count, unspecified; I10 Essential (primary) hypertension; Z79.899 Other long term (current) drug therapy; Z88.0 Allergy status to penicillin; Z88.1 Allergy status to other antibiotic agents; Z88.2 Allergy status to sulfonamides; Z88.8 Allergy status to other drugs, medicaments and biological substances
CPT/HCPCS: 36415; 80048; 80076; 81003; 84703; 85025; 85044; 86850; 86900; 99283